=== PATIENT | male | born 1995 | race Hispanic/Latino ===

== ENCOUNTER 2017-07-16 13:55 | Emergency (ER) | payer SELFPAY ==
[~2017-07-16] VITALS: Ht 177.8 cm; Wt 90.7 kg
[2017-07-16] MEDS ORDERED: SODIUM CHLORIDE 0.9% 1000ML 1,000 ML IV STA (14:44)
[2017-07-16 14:54] LABS: KETONES,URINE NEGATIVE (NEGATIVE); LEUKOCYTE ESTERASE ,URINE TRACE (NEGATIVE); NITRITE,URINE NEGATIVE (NEGATIVE); URINE UROBILINOGEN 0.2 mg/dL (0.2 - 1)
[2017-07-16 14:55] LABS: BILIRUBIN,URINE 1+ (NEGATIVE); CLARITY,URINE CLEAR (CLEAR); COLOR,URINE YELLOW (YELLOW); PROTEIN,URINE DIPSTICK 2+ (NEGATIVE)
[2017-07-16 14:55] LABS: BASOPHILS % 0.5 % (0.0-1.0); EOSINOPHILS # (AUTO) 0.3 (0.0-0.4); EOSINOPHILS % 3.2 % (0.0-6.0); HEMATOCRIT 55.1 % (38.2-49.6); HEMOGLOBIN 18.2 g/dL (14.0-18.0); LYMPHOCYTES # (AUTO) 2.1 (1.0-3.2); LYMPHOCYTES % 26.2 % (18.0-39.1); MEAN CORPUSCULAR HEMOGLOBIN 27.4 pg (28-32); MEAN CORPUSCULAR VOLUME 82.9 fL (81-99); MONOCYTES # (AUTO) 0.7 (0.2-0.8); MONOCYTES % 8.1 % (4.4-11.3); NEUTROPHILS % 61.8 % (38.7-80.0); PLATELET COUNT 212 x10e3/uL (140-360); RED BLOOD COUNT 6.65 x10e6/uL (4.3-5.7); RED CELL DISTRIBUTION WIDTH 15.3 % (11.7-14.4)
[2017-07-16 15:08] LABS: INR 0.89; PROTHROMBIN TIME 12.5 seconds (11.9-14.5)
[2017-07-16 15:08] LABS: BACTERIA,URINE FEW /HPF; RBC,URINE 0-5 /HPF (0-5)
[2017-07-16 15:09] LABS: MUCUS,URINE FEW (RARE)
[2017-07-16 15:09] LABS: PARTIAL THROMBOPLASTIN TIME 32.5 seconds (23.8-35.5)
[2017-07-16 15:18] LABS: ALANINE AMINOTRANSFERASE 24 IU/L (0-55); ALBUMIN 3.9 g/dL (3.5-5.0); ALBUMIN/GLOBULIN RATIO 1.1 (0.8-2.0); ALKALINE PHOSPHATASE 92 IU/L (40-150); ANION GAP 12.9 mmol/L (8-16); BLOOD UREA NITROGEN 23 mg/dL (7-26); BUN/CREATININE RATIO 20 (6-25); CALCIUM 9.2 mg/dL (8.4-10.2); CARBON DIOXIDE 23 mmol/L (22-29); CHLORIDE 108 mmol/L (98-107); CREATINE KINASE 96 IU/L (30-200); CREATININE, SERUM 1.17 mg/dL (0.72-1.25); EST GLOMERULAR FILTRATION RATE > 60 ML/MIN (60-); GLUCOSE 110 mg/dL (74-118); POTASSIUM 3.9 mmol/L (3.5-5.1); SODIUM 140 mmol/L (136-145)
[2017-07-16 15:19] LABS: HIV 1&2 AB SCREEN NON-REACTIVE (NONREACTIVE)
[2017-07-16 15:24] LABS: TROPONIN I 0.022 ng/mL (0-0.300)
[2017-07-16] MEDS ORDERED: SODIUM CHLORIDE 0.9% 1000ML 1,000 ML IV SCH (16:00)
[2017-07-16] MEDS ORDERED: CEFTRIAXONE SOD 1 GM VIAL IV ONE (16:00)
--- NOTE | 2017-07-16 16:02 | Diagnostic Imaging Report ---
PROCEDURE:CHEST 2 VIEWS COMPARISON:Chest x-ray, 02/09/17. INDICATIONS:CHEST PAIN, SHORTNESS OF BREATH FINDINGS: Lines and tubes: None Heart size normal. No focal pulmonary opacity, pleural effusion or pneumothorax. Upper abdomen unremarkable with no free air. No acute bony abnormality. CONCLUSION:No evidence for acute disease. Dictated by: Gilles Lopez M.D. on 07/16/2017 at 16:11 Electronically approved by: Gilles Lopez M.D. on 07/16/2017 at 16:11
[2017-07-16] MEDS ORDERED: ONDANSETRON HCL INJ 2 MG/ML VIAL IV STA (16:55)
[2017-07-16 17:21] VITALS: BP 141/90
== END 2017-07-16 17:46 | disposition home or self-care (01) ==
LOC: ER 13:55
DX: R50.9 Fever, unspecified (principal); R05 Cough; R11.0 Nausea; R51 Headache; R07.89 Other chest pain; M54.9 Dorsalgia, unspecified; N10 Acute pyelonephritis
CPT/HCPCS: 36415; 71020; 80053; 81001; 82550; 82553; 84484; 85025; 85610; 85730; 87086; 87390; 93005; 99284; G0433; G0435; J0696; J2405; J7030

== ENCOUNTER 2017-07-19 13:55 | Emergency (ER) | END 2017-07-19 14:18 | disposition short-term general hospital (02) | LOC: ER 13:55 | DX: R21 Rash and other nonspecific skin eruption (principal) ==

== ENCOUNTER 2017-10-08 21:54 | Emergency (ER) | payer SELFPAY ==
--- OUTSIDE RECORDS SUMMARY | 2017-10-08 21:57 | XMS REPORT ---
Author Author [facility] Address Unknown Phone Unavailable Care Team Providers Care Control System Computer Scientist Name Role Phone BETTIE JULES Unavailable Unavailable DORENE XIE Unavailable Unavailable Problems This patient has no known problems. Allergies, Adverse Reactions, Alerts This patient has no known allergies or adverse reactions. Medications This patient has no known medications. Results Test Description Test Time Test Comments Text Results Atomic Results Result Comments CULTURE, URINE 2016-10-05 06:33:00 Specimen: Urine RandomCollected: 2016 17:04 Status: Final Last Updated: 10/05/2016 06:33 Culture Result (Final) (Final) Very Few Mixed Body Mechelle Isolated at 48 hours No Pathogens Isolated TROPONIN-I Quantitative 2016-10-02 18:50:00 Troponin-I (test code=TROP) <0.012 ng/ml 0.000-0.034 The 99th Percentile URL is 0.034 ng/mL. The Joint Society of Cardiology/[place] [employer] (ESC/ACC) and the National Academy of Clinical Biochemistry Standards of Laboratory Practices (NACB) recommends that the diagnosis of AMI includes the presence of clinical history suggestive of Acute Coronary Syndrome (ACS) and a maximum concentration of cardiac troponin exceeding the 99th percentile of a normal reference population [upper reference limit (URL)] on at least one occasion during the first 24 hours after the clinical event. PRO-BNP(B-Type Natriuretic Peptide)2016-10-02 18:50:00* Test Item Value Reference Range Comments Pro-BNP(B-Peptide) (test code=PROBNP) 17 pg/ml 0-125 AMYLASE, [id number] 18:45:00* Test Item Value Reference Range Comments Amylase (test code=AMYL) 127 U/L 12-103 LIPASE, [id number] 18:45:00* Test Item Value Reference Range Comments Lipase (test code=LIPA) 76 U/L 8-223 PT AND [id number] 18:05:00* Test Item Value Reference Range Comments Protime (test code=PT) 9.8 seconds 9.0-11.8 INR (test code=INR) 0.9 0.9-1.1 INR results are intended ONLY to monitor Oral Anticoagulant therapy in stablized patients. The INR Therapeutic Range is 2.0 - 3.0 Patients with a mechanical heart, the INR Range is 2.5 - 3.5 [id number] 18:05:00* Test Item Value Reference Range Comments aPTT (test code=PTT) 29.6 seconds 25.3-35.7 [id number] 17:57:00* Test Item Value Reference Range Comments Glucose (test code=GLU) 104 mg/dl 75-110 BUN (test code=BUN) 19.0 mg/dl 6.0-17.0 Creatinine (test code=CREA) 0.8 mg/dl 0.4-1.2 Sodium (test code=NA) 141 mmol/l 137-145 Potassium (test code=K) 4.4 mmol/l 3.5-5.0 Chloride (test code=CL) 105 mmol/l 98-107 CO2 (test code=CO2) 29 mmol/l 22-30 Anion Gap (test code=GAP) 7 Calcium (test code=CALC) 9.1 mg/dl 8.4-10.2 T Protein (test code=TP) 7.2 gm/dl 5.1-8.7 Albumin (test code=ALB) 3.9 gm/dl 3.5-4.6 A/G Ratio (test code=AGRAT) 1.2 % 1.1-2.2 AST (SGOT) (test code=AST) 36 U/L 11-36 ALT (SGPT) (test code=ALT) 44 U/L 11-40 Alkaline Phos (test code=ALKP) 71 U/L 47-114 Total Bilirubin (test code=TBIL) 0.5 mg/dl 0.2-1.2 Globulin (test code=GLOBU) 3.3 gm/dl 2.3-3.5 Calcium, Corrected (test code=CALCCORR) 9.2 mg/dl 8.4-10.2 Various formulas exist for corrected serum calcium results, each yielding different values. This corrected result was based on the formula: Corrected Calcium=SerumCalcium + [0.8 * ( 4 - SerumAlbumin)] EGFR if (test code=EGFRAA) >60 mL/min/1.73m\S\2 EGFR if Non- (test code=EGFRNA) >60 mL/min/1.73m\S\2 Estimated Glomerular Filtration Rate (eGFR) Reference Intervals Decision Points for 18 years and older and average body mass: >=60 Does not exclude kidney disease. 30 - 59 Suggests moderate chronic kidney disease and indicates the need for further investigation including assessment of proteinuria and cardiovascular factors. < 30 Usually indicates a need for referral for assessment and management of chronic kidney failure. CBC WITH AUTO [id number] 17:56:00* Test Item Value Reference Range Comments WBC (test code=WBC) 8.3 k/ul 4.8-10.8 RBC (test code=RBC) 6.04 Millions/ul 4.70-6.10 Hemoglobin (test code=HGB) 16.0 gm/dl 14.0-18.0 Hematocrit (test code=HCT) 49.2 % 42.0-50.0 MCV (test code=MCV) 81.5 fL 80.0-94.0 MCH (test code=MCH) 26.5 pg 27.0-31.0 MCHC (test code=MCHC) 32.5 gm/dl 33.0-37.0 RDW (test code=RDWVC) 15.4 % 11.5-14.5 Platelet (test code=PLT) 183 k/ul 130-400 MPV (test code=MPV) 9.9 fL 7.4-10.4 NE% (test code=NE) 56.7 % 42.0-75.0 LY% (test code=LY) 30.0 % 13.0-42.0 MO% (test code=MO) 8.4 % EO% (test code=EO) 4.3 % 1.0-3.0 BA% (test code=BA) 0.6 % 1.0-3.0 NRBC, Auto (test code=NRBC_AUTO) 0 /100WBC 0-0 URINALYSIS WITH [id number] 16:27:00* Test Item Value Reference Range Comments Color (test code=UCOLR) Lt. Yellow Clarity (test code=UCLAR) CLEAR Glucose (test code=UGLUC) NEGATIVE NEGATIVE Bilirubin (test code=UBILI) NEGATIVE NEGATIVE Ketones (test code=UKET) NEGATIVE NEGATIVE Specific [place] (test code=USPGR) 1.025 1.005-1.030 Blood (test code=UBLD) SMALL NEGATIVE PH (test code=UPH) 7.5 4.5-8.0 Protein (test code=UPROT) >=300 NEGATIVE Urobilinogen (test code=U UROB) 1.0 >0.2 Nitrite (test code=UNITR) NEGATIVE NEGATIVE Leukocyte Esterase (test code=ULEUK) NEGATIVE NEGATIVE WBC (test code=WBCUR) 0-1 0-5 RBC (test code=RBCUR) 0-1 0-5 Epithial Cells (test code=U EPI) 0-1 0-10 Mucous (test code=UMUC) None Seen None Seen Bacteria (test code=UBACT) Trace None Seen,Trace CHEST 2 VIEWS [place] [address] Patient Name: JEANNINE MACHADO MR #: [id number] : 1995 Age/Sex: 22/M Req #: [id number] Adm Physician: Ordered by: BETTIE JULES MD Report #: [id number] Location: ER Room/Bed: Procedure: [id number] DX/CHEST 2 VIEWS Exam Date: 07/16/17 Exam Time: 1455 REPORT STATUS: Signed PROCEDURE: CHEST 2 VIEWS COMPARISON : Chest x-ray, 02/09/17. INDICATIONS: CHEST PAIN, SHORTNESS OF BREATH FINDINGS: Lines and tubes: None Heart size normal. No focal pulmonary opacity, pleural effusion or pneumothorax. Upper abdomen unremarkable with no free air. No acute bony abnormality. CONCLUSION: No evidence for acute disease. Dictated by: Bettie Solo M.D. on 07/16/2017 at 16:11 Electronically approved by: Bettie Solo M.D. on 07/16/2017 at 16:11 Dictated By: BETTIE SOLO MD 1611 Transcribed By: MEENU on 07/16/17 1611 COPY TO: BETTIE JULES MD
== END 2017-10-09 00:07 | disposition short-term general hospital (02) ==
LOC: ER 21:54
DX: R50.9 Fever, unspecified (principal)

== ENCOUNTER 2018-08-07 19:23 | Emergency (ER) ==
--- OUTSIDE RECORDS SUMMARY | 2018-08-07 19:25 | XMS REPORT | Continuity of Care Document ---
Author Author [facility] Address [address] [place] [address] ;ext= Care Team Providers Care Panel Sewer Name Role Phone DR GERALDO ANGLIN Admlila DR GERALDO ANGLIN [facility] Admission Diagnosis Code Admission Diagnosis Date [id number] Cell-mediated immune reaction Social History Element Description Code Description Smoking Status Code System Start Date End Date Smoking Status [id number] Never smoker SNOMED-CT Problems Code Code System Problem Name Start Date End Date Status 308515053 SNOMED-CT Chest wall pain 11/14/2016 Active 643241330 SNOMED-CT Contusion of rib 11/14/2016 Active 33197170 SNOMED-CT Abdominal pain 10/02/2016 Active 45866634 SNOMED-CT Varicocele 01/14/2016 Active 53885442 SNOMED-CT Pain in testicle 01/14/2016 Active 487819039 SNOMED-CT Chronic renal impairment 02/2013 Active 68148392 SNOMED-CT Systemic lupus erythematosus 02/2013 Active Medications RxNorm Medication Dose Route Instructions Indications Start Date End Date Status 299462 Diclofenac Potassium 50 MG Oral Tablet 50 milligram Oral orally 3 times per day (administer with food or milk) 11/14/2016 Active 920284 Lisinopril 20 MG Oral Tablet 20 milligram Oral orally every day Active 737120 Acetaminophen 325 MG / Hydrocodone Bitartrate 5 MG Oral Tablet 2 tablets Oral orally every 6 hours as needed. pain No Longer Active 3640 Doxycycline 100 milligram Oral orally every 12 hours (10 days) 01/14/2016 No Longer Active 6470 Lorazepam 0.5 milligram Oral orally every 8 hours as needed. anxiety No Longer Active 89465 mycophenolate mofetil 1500 milligram Oral orally every 12 hours No Longer Active 016281 Naproxen 500 MG Oral Tablet 500 milligram Oral orally 2 times per day as needed. (administer with food or milk) pain 01/14/2016 No Longer Active 677032 POLYETHYLENE GLYCOL 3350 142 MG/ML Oral Solution 17 gram Oral orally every day (5 day) (mix into 4-8 oz. of any hot/cold/room temp. beverage; use immediately) No Longer Active 127660 prednisolone 5 MG Oral Tablet 20 milligram Oral orally 3 times per day No Longer Active 837450 tramadol hydrochloride 50 MG Oral Tablet 50 milligram Oral orally every 4 hours as needed. (4 days) (as needed for pain) No Longer Active Allergies Code Code System Allergy Substance Type Reaction Severity Start Date End Date Status 723 RXNorm Amoxicillin Drug allergy Unknown Active Results Radiology Results Order: [id number] XR CHEST 2 PA LATERAL* Exam Completion Date:11/03/2017 13:09 PA and lateral chest:Exam Date: 11/03/2017Clinical Indication: TBThe lungs are clear. The cardiomediastinal silhouette is within normal limits.There are no sig nificant bony abnormalities. No radiographic evidence of TB.Impression: No activ e cardiopulmonary disease.This final report was electronically signed by Dr Elias Melo MD 11/03/20172:01 PMDictated By: Fidencio MELOte: 11/03/2017 14 :07 Vital Signs * No data in the system Plan of Care * No data in the system Procedures Code Code System Procedure Name Target Site Date of Procedure XR CHEST 2 PA LATERAL 11/03/2017 14:07 Encounters Date Code Diagnosis Status (ICD10) - R7612 NONSPC RXN C MED IMMU INF-G ANT RES Active Immunizations Vaccine Code Code System Vaccine Name Date Status 123 CVX influenza virus vaccine, H5N1, A/[place] (national stockpile) Not given (patient objection) 109 CVX pneumococcal vaccine, NOS Not given (patient objection) Functional Status * No data in the system Hospital Discharge Instructions * No data in the system
--- NOTE | 2018-08-07 20:15 | NUR ---
NOT IN WAITING ROOM
--- NOTE | 2018-08-07 20:30 | NUR ---
NOT IN WAITING ROOM
--- NOTE | 2018-08-07 20:45 | NUR ---
NOT IN WAITING ROOM
== END 2018-08-07 20:46 | disposition left against medical advice (07) ==
LOC: ER 19:23
DX: K08.89 Other specified disorders of teeth and supporting structures (principal)

== ENCOUNTER 2018-08-08 01:46 | Emergency (ER) | payer SELFPAY ==
[~2018-08-08] VITALS: Ht 177.8 cm; Wt 90.7 kg
[2018-08-08] MEDS ORDERED: FLUORESCEIN SOD(OPTH) 1 MG STRP OP ONE (02:30)
[2018-08-08] MEDS ORDERED: EYE IRRIGATION (OPTH) 120 ML BTL OP ONE (02:30)
[2018-08-08] MEDS ORDERED: TETRACAINE HCL 0.5% OPTH SOLN 4 ML BTL OP ONE (02:30)
[2018-08-08 03:17] VITALS: BP 137/95
== END 2018-08-08 03:55 | disposition home or self-care (01) ==
LOC: ER 01:46
DX: H57.13 Ocular pain, bilateral (principal); T75.09XA Other effects of lightning, initial encounter; H16.133 Photokeratitis, bilateral; K02.9 Dental caries, unspecified; K08.89 Other specified disorders of teeth and supporting structures
CPT/HCPCS: 99283

== ENCOUNTER 2019-01-12 18:10 | Emergency (ER) | payer SELFPAY ==
[~2019-01-12] VITALS: Ht 177.8 cm; Wt 90.7 kg
== END 2019-01-12 18:30 | disposition left against medical advice (07) ==
LOC: ER 18:10
DX: S02.5XXA Fracture of tooth (traumatic), initial encounter for closed fracture (principal); X58.XXXA Exposure to other specified factors, initial encounter; Y93.89 Activity, other specified; I12.9 Hypertensive chronic kidney disease with stage 1 through stage 4 chronic kidney disease, or unspecified chronic kidney disease; N18.9 Chronic kidney disease, unspecified; M32.9 Systemic lupus erythematosus, unspecified